=== PATIENT | male | born 1975 | race Caucasian/White ===

== ENCOUNTER → 2019-01-16 | Outpatient (CLI) | payer OTHER ==
--- NOTE | 2019-01-16 11:11 | KCIC ---
MRI Lumbar Spine without contrast History: Lumbar pain with radiation into the bilateral legs, new left leg shooting pain Technique: Multiplanar, multi sequential noncontrast MR imaging was performed of the lumbar spine. Comparison: None Findings: There appears to be transitional anatomy. Most inferior fully formed intervertebral disc space is considered L5-S1 for this report. Lumbar vertebral body stature and AP alignment are maintained. Conus terminates at the inferior aspect of L2. There is mild degenerative disc disease L4-5 and L5-S1, mild disc desiccation L2-3 and L3-4. There is edema associated with the left L5 pedicle and also left L5-S1 facet articulation. L1-L2: This level was not included on the axial images. Spinal canal and neural foramina are adequate. L2-L3: There is minimal disc osteophyte complex, mild indentation upon the ventral thecal sac greater in the left lateral recess. There is mild buckling of the ligamentum flavum and facet degenerative change. There is mild narrowing of the far left lateral recess. Neural foramina are adequate. L3-L4: There is facet degenerative change and [id number] buckling of the ligamentum flavum. There is prominence of posterior epidural fat greatest centrally. There is very minimal disc osteophyte complex. Neural foramina are overall adequate. There is minimal narrowing of the far left lateral recess. L4-L5: There is severe facet degenerative change greater on the right. There is mild to moderate buckling of the ligamentum flavum. There is minimal disc osteophyte complex and superimposed shallow bulge, mild indentation upon the ventral thecal sac greater in the right lateral recess. There is overall moderate spinal stenosis with right greater than left lateral recess stenosis. There is contact of the descending right L5 nerve root. Left neural foramen is adequate. There is moderate narrowing of the right neural foramen, disc osteophyte complex near undersurface exiting right L4 nerve root extending to proximal extraforaminal region. L5-S1: There is severe facet degenerative change greater on the left. There is mild to moderate buckling of the ligamentum flavum. There is minimal disc osteophyte complex and bulge. There is [id number] narrowing of the far left lateral recess, minimally on the right. There is degree of contact of the descending left S1 nerve root. There is mild right and moderate to severe left neural foramina compromise with contact of the undersurface exiting left L5 nerve root by disc osteophyte complex and bulge. Impression: 1. There may be transitional anatomy, most inferior fully formed intervertebral disc space considered L5-S1. There is moderate spinal stenosis with a greater degree of right lateral recess stenosis at L4-5, lesser degree of left lateral recess stenosis L5-S1, minimal narrowing of the far left lateral recesses as at L2-3 and L3-4. There is neural foramina compromise as stated greatest on the left at L5-S1 and to lesser degree on the right at L4-5. There is multilevel facet degenerative change. There is some edema associated with the left L5-S1 facet articulation more likely be reactive/degenerative in etiology. There is mild degenerative disc disease L4-5 and L5-S1. Electronically signed by: Andi Gomez MD (01/16/2019 11:08 AM) [id number]
== END | disposition home or self-care (01) ==
LOC: KCIC MRI 09:54
PROVIDERS: ATTEND Nurse Practitioner Family
DX: M51.37 Other intervertebral disc degeneration, lumbosacral region (principal); M47.817 Spondylosis without myelopathy or radiculopathy, lumbosacral region; M48.07 Spinal stenosis, lumbosacral region; M25.78 Osteophyte, vertebrae
CPT/HCPCS: 72148